=== PATIENT | male | born 1940 | race Caucasian/White ===

== ENCOUNTER 2018-05-26 08:19 | Day surgery (SDC) | payer MEDICARE, OTHER ==
[~2018-05-26] VITALS: Ht 185.4 cm; Wt 82.0 kg
[2018-05-26] MEDS ORDERED: IRBE75TA31 PO (08:51)
[2018-05-26] MEDS ORDERED: AMLO5TAB4 PO (08:51)
[2018-05-26] MEDS ORDERED: FAMO-79 PO (08:51)
[2018-05-26 09:01] VITALS: BP 155/79
[2018-05-26] MEDS ORDERED: MIDAZOLAM 1 MG/ML, 2ML ONE (09:49)
[2018-05-26] MEDS ORDERED: FENTANYL PF 100 MCG/2ML ONE (09:49)
[2018-05-26] MEDS ORDERED: LIDOCAINE/PF 1%, 30ML ONE (09:49)
[2018-05-26] MEDS ORDERED: MIDAZOLAM 1 MG/ML, 5ML ONE (10:15)
[2018-05-26] MEDS ORDERED: ATOR10TA9 PO (13:20)
== END 2018-05-26 14:28 | disposition home or self-care (01) ==
LOC: CACL 08:19
PROVIDERS: ATTEND Internal Medicine Cardiovascular Disease
DX: I25.110 Atherosclerotic heart disease of native coronary artery with unstable angina pectoris (principal); I10 Essential (primary) hypertension; D68.2 Hereditary deficiency of other clotting factors; Z88.1 Allergy status to other antibiotic agents
CPT/HCPCS: 93458; 99156; 99157; C1760; C1769; C1894; J2250; J3010; J3490; Q9967

== ENCOUNTER → 2019-06-02 | Outpatient (CLI) | payer MEDICARE, OTHER ==
[~2019-06-02] MED LIST: AMLO5TAB4 PO; ATOR10TA9 PO; FAMO-79 PO; IRBE75TA31 PO
== END | disposition home or self-care (01) ==
LOC: CFH 08:35
PROVIDERS: ATTEND Internal Medicine Cardiovascular Disease
DX: I25.10 Atherosclerotic heart disease of native coronary artery without angina pectoris (principal)
CPT/HCPCS: 78452; 93017; A9502

== ENCOUNTER 2020-04-21 07:16 | Day surgery (SDC) | payer MEDICARE, OTHER ==
[~2020-04-21] VITALS: Ht 185.4 cm; Wt 82.8 kg
[2020-04-21] MEDS ORDERED: PROPOFOL 10 MG/ML, 20ML ONE (07:28)
[2020-04-21 07:54] VITALS: BP 152/75
[2020-04-21] MEDS ORDERED: ATOR20TA37 PO (07:54)
[2020-04-21] MEDS ORDERED: IRBE150T49 PO (07:54)
[2020-04-21] MEDS ORDERED: SODIUM CHLORIDE 0.9% 1,000 ML IV ONE (08:00)
== END 2020-04-21 11:32 | disposition home or self-care (01) ==
LOC: CACL 07:16
PROVIDERS: ATTEND Internal Medicine Cardiovascular Disease
DX: I08.0 Rheumatic disorders of both mitral and aortic valves (principal); Z20.828 Contact with and (suspected) exposure to other viral communicable diseases; I10 Essential (primary) hypertension; D68.2 Hereditary deficiency of other clotting factors; F52.21 Male erectile disorder; E78.2 Mixed hyperlipidemia; K21.9 Gastro-esophageal reflux disease without esophagitis; Z79.899 Other long term (current) drug therapy; Z88.2 Allergy status to sulfonamides
CPT/HCPCS: 87635; 93306; 93312; 93325; J2704

== ENCOUNTER 2020-09-13 08:03 | Day surgery (SDC) | payer MEDICARE ==
[~2020-09-13] VITALS: Ht 185.4 cm; Wt 82.3 kg
[~2020-09-13 08:03] MED LIST changes: +ATOR20TA37 PO; +IRBE150T49 PO
[2020-09-13] MEDS ORDERED: OMEP20TA62 PO (08:28)
[2020-09-13 08:29] VITALS: BP 138/77
[2020-09-13] MEDS ORDERED: FENTANYL PF 100 MCG/2ML ONE (10:09)
[2020-09-13] MEDS ORDERED: LIDOCAINE 2%, 20ML ONE (10:09)
[2020-09-13] MEDS ORDERED: MIDAZOLAM 1 MG/ML, 5ML ONE (10:09)
== END 2020-09-13 15:12 | disposition home or self-care (01) ==
LOC: CACL 08:03
PROVIDERS: ATTEND Internal Medicine Cardiovascular Disease
DX: Z01.810 Encounter for preprocedural cardiovascular examination (principal); I34.0 Nonrheumatic mitral (valve) insufficiency; I25.10 Atherosclerotic heart disease of native coronary artery without angina pectoris; I10 Essential (primary) hypertension; E78.2 Mixed hyperlipidemia; D68.2 Hereditary deficiency of other clotting factors; F52.21 Male erectile disorder; Z79.899 Other long term (current) drug therapy; Z88.2 Allergy status to sulfonamides
CPT/HCPCS: 93458; 99156; C1760; C1769; C1894; J2250; J3010; Q9967